=== PATIENT | female | born 2005 | race Caucasian/White ===

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

== ENCOUNTER → 2025-08-18 | Outpatient (REF) | payer OTHER | LOC: M LAB REF 14:59 | DX: B34.9 Viral infection, unspecified (principal) ==